=== PATIENT | male | born 1990 | race Caucasian/White ===

== ENCOUNTER 2024-05-14 09:01 | Emergency (ER) | payer SELFPAY ==
[~2024-05-14] VITALS: Ht 177.8 cm; Wt 89.1 kg
[2024-05-14] MEDS ORDERED: Orphenadrine 60 MG/2ML AMP IM ONE (09:30)
[2024-05-14] MEDS ORDERED: Ketorolac 30 MG/ML VIAL IM ONE (09:30)
[2024-05-14 10:56] VITALS: BP 123/72
== END 2024-05-14 11:01 | disposition home or self-care (01) ==
LOC: ED 09:01
DX: S20.211A Contusion of right front wall of thorax, initial encounter (principal); Z87.891 Personal history of nicotine dependence; W01.198A Fall on same level from slipping, tripping and stumbling with subsequent striking against other object, initial encounter; Y92.89 Other specified places as the place of occurrence of the external cause; Y99.0 Civilian activity done for income or pay
CPT/HCPCS: J1885; J2360